=== PATIENT | female | born 1985 | race Caucasian/White ===

== ENCOUNTER 2017-12-08 14:58 | Emergency (ER) | payer OTHER ==
[~2017-12-08] VITALS: Ht 149.9 cm; Wt 59.0 kg
[~2017-12-08 14:58] MED LIST: ACETAMINOPHEN-1 EAC1 PO; APAP500; CEPHALEXIN 500500 M3 PO; DOXYCYCLINE 10100 MG PO; HYDROCODONE-AP1 EAC6 PO; LORTABELXR PO; NOHOMEMEDICATIONS; NORCO 5-325 TA1 EACH PO; PERCOCET 5-3251 EACH PO; PHENERGAN 25 MG25 M1 PO; PROMETHAZINE V473 ML PO; TESSALON PERLE100 MG PO; ULTRAM 50MG TAB50 MG PO; VENTOLIN HFA 1818 GM INH
[2017-12-08] MEDS ORDERED: SSD CREAM 1% 5050 GM TOP (15:14)
[2017-12-08] MEDS ORDERED: KEFLEX500 M1 PO (15:14)
[2017-12-08 16:10] VITALS: BP 104/59
== END 2017-12-08 16:10 | disposition home or self-care (01) ==
LOC: M.ERS 14:58
DX: T22.20XA Burn of second degree of shoulder and upper limb, except wrist and hand, unspecified site, initial encounter (principal); T31.0 Burns involving less than 10% of body surface; X12.XXXA Contact with other hot fluids, initial encounter; Y93.89 Activity, other specified; Y92.89 Other specified places as the place of occurrence of the external cause; Y99.8 Other external cause status

== ENCOUNTER 2018-01-01 18:43 | Emergency (ER) | payer OTHER ==
[~2018-01-01] VITALS: Ht 149.9 cm; Wt 56.7 kg
[~2018-01-01 18:43] MED LIST changes: +KEFLEX500 M1 PO; +SSD CREAM 1% 5050 GM TOP
[2018-01-01] MEDS ORDERED: KEFLEX500 M1 PO (19:25)
[2018-01-01] MEDS ORDERED: BACTRIM DS TAB1 EACH PO (19:25)
[2018-01-01 19:37] VITALS: BP 111/95
== END 2018-01-01 19:38 | disposition home or self-care (01) ==
LOC: M.ERS 18:43
DX: L03.114 Cellulitis of left upper limb (principal)

== ENCOUNTER 2018-04-24 13:15 | Emergency (ER) | payer OTHER ==
[~2018-04-24] VITALS: Ht 149.9 cm; Wt 56.7 kg
[~2018-04-24 13:15] MED LIST changes: +BACTRIM DS TAB1 EACH PO
[2018-04-24] MEDS ORDERED: VENTOLIN HFA 1818 GM INH (14:45)
[2018-04-24] MEDS ORDERED: ZPAK PO (14:45)
[2018-04-24] MEDS ORDERED: PREDNISONE50 MG PO (14:45)
[2018-04-24 15:01] VITALS: BP 123/69
== END 2018-04-24 15:03 | disposition home or self-care (01) ==
LOC: M.ERS 13:15
DX: J18.9 Pneumonia, unspecified organism (principal)

== ENCOUNTER 2018-12-11 13:02 | Emergency (ER) | payer OTHER ==
[~2018-12-11] VITALS: Ht 152.4 cm; Wt 50.4 kg
[~2018-12-11 13:02] MED LIST changes: +PREDNISONE50 MG PO; +ZPAK PO
[2018-12-11 13:47] LABS: ABSOLUTE EOSINOPHILS 0.1 thou/uL (0.0-0.7); ABSOLUTE LYMPHOCYTES 1.6 thou/uL (0.8-5.3); ABSOLUTE MONOCYTES 0.4 thou/uL (0.0-1.2); ABSOLUTE NEUTROPHILS 4.5 thou/uL (1.6-8.1); BASOPHILS 0.7 %; EOSINOPHILS 1.6 %; HEMOGLOBIN 12.4 gm/dL (12.0-15.0); LYMPHOCYTES 23.7 %; MCH 28.2 pg (26.0-34.0); MCHC 33.6 g/dL (28.0-37.0); MCV 83.9 fL (80.0-100.0); MONOCYTES 6.3 %; MPV 8.7 fl. (7.2-11.1); NUCLEATED RBCS 0 /100WBC; PLATELET COUNT* 230 thou/uL (150-400); POLYS 67.7 %; RBC 4.41 mil/uL (4.20-5.00); RDW-CV 13.6 % (10.5-14.5); WBC 6.6 thou/uL (4.0-11.0)
[2018-12-11 13:51] LABS: ANION GAP 10 mmol/L (7-16); BUN 7 mg/dL (7-18); CALCIUM 8.8 mg/dL (8.5-10.1); CHLORIDE 105 mmol/L (98-107); CO2 28 mmol/L (21-32); CREATININE 0.7 mg/dL (0.6-1.3); GLUCOSE 99 mg/dL (70-99); POTASSIUM 3.9 mmol/L (3.5-5.1); SODIUM 143 mmol/L (136-145)
[2018-12-11 13:54] LABS: INR 1.1; PROTIME 10.8 Seconds (9.20-11.50)
[2018-12-11 14:03] LABS: ALBUMIN 4.1 g/dL (3.4-5.0); ALKALINE PHOSPHATASE 65 U/L (46-116); SGOT 12 U/L (15-37); SGPT 15 U/L (30-65); TOTAL BILIRUBIN 1.1 mg/dL (<0.1-1.0); TOTAL PROTEIN 7.7 g/dL (6.4-8.2); TROPONIN-I LEVEL <0.06 ng/mL (<0.06)
[2018-12-11 15:12] LABS: URINE BILIRUBIN NEGATIVE (Negative); URINE BLOOD NEGATIVE (Negative); URINE CLARITY CLEAR; URINE COLOR YELLOW; URINE GLUCOSE-RANDOM NEGATIVE (Negative); URINE KETONES NEGATIVE (Negative); URINE LEUKOCYTES-REFLEX NEGATIVE (Negative); URINE NITRITE-REFLEX NEGATIVE (Negative); URINE PROTEIN NEGATIVE (Negative); URINE UROBILINOGEN 0.2 E.U./dl (0.2-1.0)
[2018-12-11 15:37] VITALS: BP 128/83
--- NOTE | 2018-12-11 17:06 | EKG ---
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 : 1985 Requested By: Barbara Cameron Order Number: [id number] MD: Nav Houston Measurements Intervals [place] Rate: 74 P: 23 AR: 138 QRS: 33 QRSD: 112 T: 14 QT: 402 QTc: 446 Interpretive Statements Sinus rhythm Borderline intraventricular conduction delay Compared to ECG 05/17/2016 15:49:34 Right ventricular hypertrophy no longer present Electronically Signed On 12-11-2018 17:05:47 CDT by Nav Houston [email or web address] <ELECTRONICALLY SIGNED> By: Nav Houston MD, [facility] 12/11/18 1705 1309 1309 Nav Houston MD, FAC /EPI
== END 2018-12-11 15:38 | disposition home or self-care (01) ==
LOC: M.ERS 13:02
PROVIDERS: Nurse Practitioner Family
DX: R07.89 Other chest pain (principal); R55 Syncope and collapse; Z98.890 Other specified postprocedural states

== ENCOUNTER 2020-02-10 14:33 | Emergency (ER) | payer OTHER ==
[~2020-02-10] VITALS: Ht 152.4 cm; Wt 59.0 kg
[2020-02-10] MEDS ORDERED: IBU-200200 MG PO (14:45)
[2020-02-10] MEDS ORDERED: TRIAMCINOLONE A80 G2 TOP (15:08)
[2020-02-10 15:34] VITALS: BP 115/74
== END 2020-02-10 15:35 | disposition home or self-care (01) ==
LOC: M.ERS 14:33
DX: L25.9 Unspecified contact dermatitis, unspecified cause (principal)

== ENCOUNTER 2021-01-25 14:45 | Emergency (ER) | payer OTHER ==
[~2021-01-25] VITALS: Ht 152.4 cm; Wt 63.5 kg
[~2021-01-25 14:45] MED LIST changes: +IBU-200200 MG PO; +TRIAMCINOLONE A80 G2 TOP
[2021-01-25] MEDS ORDERED: IBU800 MG PO (15:47)
[2021-01-25 16:02] VITALS: BP 118/68
== END 2021-01-25 16:03 | disposition home or self-care (01) ==
LOC: M.ERS 14:45
DX: S92.534A Nondisplaced fracture of distal phalanx of right lesser toe(s), initial encounter for closed fracture (principal); Z98.51 Tubal ligation status; W01.0XXA Fall on same level from slipping, tripping and stumbling without subsequent striking against object, initial encounter; Y93.89 Activity, other specified; Y92.89 Other specified places as the place of occurrence of the external cause; Y99.8 Other external cause status

== ENCOUNTER 2021-05-16 16:50 | Emergency (ER) | payer OTHER ==
[~2021-05-16] VITALS: Ht 152.4 cm; Wt 60.8 kg
[~2021-05-16 16:50] MED LIST changes: +IBU800 MG PO
[2021-05-16] MEDS ORDERED: PREDNISONE 20 M20 M1 PO (17:09)
[2021-05-16] MEDS ORDERED: ZPAK PO (17:09)
[2021-05-16 17:25] VITALS: BP 115/72
== END 2021-05-16 17:26 | disposition home or self-care (01) ==
LOC: M.ERS 16:50
DX: J40 Bronchitis, not specified as acute or chronic (principal); Z20.822 Contact with and (suspected) exposure to COVID-19; Z98.51 Tubal ligation status

== ENCOUNTER 2021-08-31 10:12 | Emergency (ER) | payer OTHER ==
[~2021-08-31] VITALS: Ht 180.3 cm; Wt 61.2 kg
[~2021-08-31 10:12] MED LIST changes: +PREDNISONE 20 M20 M1 PO
[2021-08-31 10:29] VITALS: BP 117/81
--- NOTE | 2021-08-31 12:59 | EKG ---
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 : 1985 Requested By: Joanne Maharaj Order Number: [id number] MD: Prosper Medina Measurements Intervals [place] Rate: 70 P: 22 ND: 135 QRS: 2 QRSD: 111 T: -2 QT: 409 QTc: 442 Interpretive Statements Sinus rhythm Low voltage, precordial leads Borderline T abnormalities, inferior leads Compared to ECG 12/11/2018 13:09:30 Low QRS voltage now present T-wave abnormality now present Electronically Signed On 08-31-2021 12:59:41 [employer]INE[employer] by Prosper Medina [email or web address] <ELECTRONICALLY SIGNED> By: Prosper Medina MD, [facility] 08/31/21 1259 1234 1234 Prosper Medina MD, [facility] /EPI
[2021-08-31 13:00] LABS: INFLUENZA A ANTIGEN Negative (Negative); INFLUENZA B ANTIGEN Negative (Negative)
[2021-08-31] MEDS ORDERED: MEDROLDOSEPACK PO (13:09)
[2021-08-31] MEDS ORDERED: ZPAK PO (13:09)
[2021-08-31] MEDS ORDERED: VENTOLIN HFA 1818 GM INH (13:09)
== END 2021-08-31 13:33 | disposition home or self-care (01) ==
LOC: M.ERS 10:12
PROVIDERS: Nurse Practitioner Family
DX: J20.9 Acute bronchitis, unspecified (principal); Z98.51 Tubal ligation status